=== PATIENT | male | born 1990 | race Two or more races ===

== ENCOUNTER 2024-07-27 17:12 | Emergency (ER) | payer SELFPAY ==
[2024-07-27 17:24] VITALS: BP 143/82
[2024-07-27] MEDS: PROTONIX IV 40 MG IV (19:54)
[2024-07-27 20:00] VITALS: BP 152/76
[2024-07-27 20:01] VITALS: BMI 32.3
[2024-07-27 20:07] LABS: % Basophils 0.6 % (0-2); % Eosinophils 0.6 % (0-6); % Immature Granulocytes 0.4 % (0-0.5); % Lymphocytes 22.1 % (20.5-51.1); % Neutrophils 71.3 % (42.2-75.2); Absolute Basophils 0.1 10^3/uL (0-0.2); Absolute Eosinophils 0.1 10^3/uL (0-0.7); Absolute Immature Granulocytes 0.1 10^3/uL (0-0.05); Absolute Lymphocytes 2.7 10^3/uL (1.2-3.4); Absolute Monocytes 0.6 10^3/uL (0.1-0.6); Absolute Neutrophils 8.8 10^3/uL (1.4-6.5); Hematocrit 46.4 % (39.0-52.0); Hemoglobin 16.9 g/dL (13.0-18.0); Mean Corp Hgb Conc. 36.4 g/dL (33.0-37.0); Mean Corpuscular Hgb 31.4 pg (27.0-31.0); Mean Corpuscular Volume 86.1 fL (80.0-94.0); Mean Platelet Volume 10.9 fL (7.4-10.4); Nucleated Red Blood Cells % 0 % (-); Platelet Count 218 10^3/uL (130-400); Red Blood Cell Count 5.39 10^6/uL (4.70-6.10); Red Cell Dist. Width 12.5 % (11.5-14.5); White Blood Cell Count 12.3 10^3/uL (4.8-10.8)
[2024-07-27 20:31] LABS: ALT (SGPT) 60 U/L (0-50); AST (SGOT) 33 U/L (17-59); Albumin 4.8 g/dl (3.5-5.0); Alkaline Phosphatase 63 U/L (38-126); Blood Urea Nitrogen 13 mg/dl (9-20); Calcium 10.2 mg/dl (8.4-10.2); Carbon Dioxide 24 mmol/L (22-30); Chloride 102 mmol/L (98-107); Estimated Creatinine Clearance > 125 ml/min; Glucose 97 mg/dl (70-99); Lipase 62 U/L (23-300); Potassium 4.5 mmol/L (3.5-5.1); Sodium 140 mmol/L (135-145); Total Bilirubin 0.5 mg/dl (0.2-1.3); Total Protein 7.2 g/dl (6.3-8.2); eGFR > 60.00
--- NOTE | 2024-07-27 22:15 | ED.GENMED ---
History of Present Illness
General
Chief Complaint: Abdominal Pain
Source: patient
Exam Limitations: none
Time Seen by Provider: 07/27/24 18:49
Nursing documentation reviewed up to this point in time: agreed with
History of Present Illness
History of Present Illness:
34 Y/O m with no chronic medical problems
here with Left upper abdominal pain for a few months, since april
post prandial
lasting variable times
pt had eval at [facility] and was told that maybe he had a hernia; they did a chest xray and ekg.
pt was sent for general surgery evluaation which he had in april
he says that the surgeon didn't think this was a hernia and told him to have outpatient ct which he did, showing hepatomegaly/fatty liver. he was told to f/u with GI
he has not yet, and he has not started any PPI
[facility]
pt says he was doing well for a few weeks until about 1 week ago when the pain started again, similar pattern with some pain after eating. he hadd been eating a bland diet for a while but because he was feeling better, he started drinking coffee
again
tonight the pain got more severe, so he came in
he has not had any black stool, fever, vomiting, diarrhea
he does sometimes have issues momving bowels
no alcohol abuse
no exertional pain, no chest pain, no sob.
Past History
Past History
ED Past Medical History: None
ED Past Surgical History: None
Social History
Tobacco: Non-smoker
Alcohol: None
Drug: None
Personal: Single
Living: with family
Employment: Employed
Review of Systems
Review of Systems
Allergies reviewed?: Yes
All Other Systems: Not applicable
Phy Exam
Physical Exam
Physical Exam:
GENERAL: Alert , in no apparent distress
EYE: pupils equal and reactive
NECK: Supple
ENT: o/p clr, mmm.
CARDIAC: Regular rate and rhythm .
LUNGS: Clear breath sounds bilaterally, no acute respiratory distress, no wheezes/rales/rhonchi
ABDOMEN: Soft, without focal tenderness, no r/g, no cvat, normal bowel sounds
neg hunt's sign
NEUROLOGICAL: Alert and oriented, no focal neuro deficits
SKIN: Warm and dry, skin intact.
MUSCULOSKELETAL: No edema, well perfused. neg evette's sign
PSYCH: Normal and appropriate interaction.
Course
Orders/Labs/Results
Orders:
Orders
07/27/24 19:30
Electrocardiogram (*1) Urgent
Reason for Study: Abdominal Pain
EKG- Treatment ONCE
Pantoprazole [Protonix IV] 40 mg IV NOW STA
07/27/24 19:58
Complete Blood Count/With Diff Urgent
Comprehensive Metabolic Panel Urgent
Lipase Urgent
07/27/24 20:49
US Abdomen Complete/Upper Urgent
Comment:
Reason For Exam: UPPER ABD PAIN, POST PRANDIAL
Abnormal Lab Results
07/27/24
19:58
WBC 12.3 H 10^3/uL
(4.8-10.8)
MCH 31.4 H pg
(27.0-31.0)
MPV 10.9 H fL
(7.4-10.4)
Abs Immat Gran (auto) 0.1 H 10^3/uL
(0-0.05)
Absolute Neuts (auto) 8.8 H 10^3/uL
(1.4-6.5)
ALT 60 H U/L
(0-50)
07/27/24 19:58
07/27/24 19:58
Vital Signs
Initial and Last Documented VS:
Initial Vital Signs
Temp Pulse Resp BP Pulse Ox
98.0 F 98 16 143/82 98
07/27/24 17:24 07/27/24 17:24 07/27/24 17:24 07/27/24 17:24 07/27/24 17:24
Last Documented Vital Signs
Temp Pulse Resp BP Pulse Ox
98.0 F 67 18 143/89 99
07/27/24 17:24 07/27/24 23:48 07/27/24 23:48 07/27/24 23:48 07/27/24 23:48
MDM/Problems Addressed
Differential Diagnosis Includes:
gerd, gastrtitis, cholelithiasis, pancreatitis
MDM/Problems Addressed:
34 y/o M
post prandial epigastirc LUQ pain for a few mo
has had eval
ct 2 mo ago showing just fatty liver
no pancreatitis
doesn't drink alcohol but did a bland diet and was better, so started eating reg again and now pain is worse
no fever, chilsl
on exam pt really is not tender
eval with labs, lfts/lipase normal
US shows no cholelithiasis, just fatty liver
ekg nonischemic
pt should see GI
may be challenging without insurance
free clinic information given
diet modification
suspect gastritis or PUD
will start PPI.
*Critical Care Note
Total Time (30-74mins, 75-104mins- exclusive of procedures): Not Applicable
ED Attending Note
-
Portions of this chart may have been created with voice recognition software.� Occasional wrong word or��sound alike� substitutions may have occurred due to the inherent limitations of voice recognition software.
Discharge Plan
Departure
Patient Disposition: Home (Routine Discharge)
Date of Disposition: 07/27/24
Time of Disposition: 22:25
Patient with high blood pressure during this ER visit?: No
Condition: Fair
Covid-19: Not Applicable
Discharge Problem:
Abdominal pain, Gastritis, Fatty liver
Instructions: Gastritis (DC)
Prescriptions:
New
pantoprazole [Protonix] 40 mg tablet,delayed release (DR/EC)
40 mg PO DAILY Qty: 30 0RF
Referrals:
DoLaura MD [Active] - Follow up in 5-7 days
UNKNOWN - PT DOES,NOT KNOW [Family Provider] -
Activity Restrictions/Additional Instructions:
YOUR ULTRASOUND AGAIN SHOWS FATTY LIVER BUT NO OTHER CONCERNING FINDINGS
YOU NEED TO SEE A APPOINTMENT SETTER (GI DOCTOR)
IN THE MEANTIME, BLAND DIET
AVOID SPICY FOODS, ACIDIC FOODS, COFFEE/CAFFEINE, ALCOHOL, SMOKING
TAKE PROTONIX 40 MG ONCE A DAY ON AN EMPTY STOMACH
RETURN TO THE ER FOR SEVERE PAIN, FEVER, VOMITING, BLACK STOOL OR ANY CONCERNS.
Interventions
Interventions:
*Risk Screen - Suicide Last Done: 07/27/24 19:59
*General Assessment Last Done: 07/27/24 19:59
*Neglect/Abuse Screening Last Done: 07/27/24 19:59
ED- Fall Risk Assessment Last Done: 07/27/24 20:00
*ED COVID-19 Vaccine History Last Done: 07/27/24 19:59
*Nursing Disposition Last Done: 07/27/24 23:48
BY-Bbnspl-Urqcenyduo Assessment Last Done: 07/27/24 20:00
Discharge Date and Time
Discharge Date/Time: 07/27/24 22:51
Print Language: POLISH
[2024-07-27 23:48] VITALS: BP 143/89
== END 2024-07-27 22:51 | disposition home or self-care (01) ==
LOC: EMR 17:12
PROVIDERS: Physician Assistant; EMERGENCY PHYSICIAN Emergency Medicine
DX: K29.70 Gastritis, unspecified, without bleeding (principal); K76.0 Fatty (change of) liver, not elsewhere classified
CPT/HCPCS: 99284; 96374; 76700; 80053; 83690; 85025; 93005

== ENCOUNTER 2025-02-03 06:23 | Day surgery (SDC) | payer OTHER, SELFPAY | END 2025-02-03 13:23 | disposition home or self-care (01) | LOC: GI 06:23 | PROVIDERS: ATTENDING PHYSICIAN Student in an Organized Health Care Education/Training Program | DX: K22.89 Other specified disease of esophagus (principal); R10.12 Left upper quadrant pain; R12 Heartburn | CPT/HCPCS: 43239; 88305; 88342 ==

== ENCOUNTER → 2025-03-18 07:07 | Outpatient (REF) | payer OTHER, SELFPAY | LOC: RCS 07:07 | DX: I51.7 Cardiomegaly (principal) | CPT/HCPCS: 93306 ==

== ENCOUNTER → 2025-05-19 14:10 | Outpatient (REF) | payer OTHER, SELFPAY | LOC: RAD 14:10 | DX: G51.0 Bell's palsy (principal) | CPT/HCPCS: 70470; 70491; Q9967 ==

== ENCOUNTER → 2025-09-08 14:18 | Outpatient (REF) | payer OTHER, SELFPAY | LOC: MRI 14:18 | PROVIDERS: ATTENDING PHYSICIAN Student in an Organized Health Care Education/Training Program | DX: K76.0 Fatty (change of) liver, not elsewhere classified (principal); R79.89 Other specified abnormal findings of blood chemistry; R16.0 Hepatomegaly, not elsewhere classified | CPT/HCPCS: 74183; 76391; A9575 ==